=== PATIENT | female | born 1970 ===

== ENCOUNTER 2016-05-29 19:59 | Inpatient (IN) | payer OTHER ==
--- NOTE | 2016-05-29 20:07 | ED PDOC ---
Arrival/HPI - General Historian: Patient - History of Present Illness Time/Duration: < week Symptom Onset: Gradual Symptom Course: Unchanged, Intermittent Quality: Stabbing Severity Level: 6 <Kymberly Henderson - Last Filed: 05/30/16 02:01> <Mitul Goldberg - Last Filed: 05/30/16 02:04> - General Chief Complaint: Chest Pain Time Seen by Provider: 05/29/16 20:01 - History of Present Illness Narrative History of Present Illness (Text): 05/29/16 20:21 45 yo F w h/o asthma presents to the ER with one-day h/o L sided intermittent sharp chest pain reproducible on palpation. Patient states she just came back from the [facility] 3 days ago and has been having BL knee pain, intermittent fevers, chills, L frontal dull headache, nausea without emesis, and intermittent non-bloody, non-mucinous diarrhea. Also admits to green productive cough x 6 days, which started while in the . States she woke up today with sharp L chest pain she thought was due to her sleeping positive, however has not improved throughout the day, thus prompting her ER visit. Patient denies relieving factors, states positional change does not affect her CP, however pressure on the area induces the pain. Patient denies tick or mosquito bites, unusual/new food ingestion, SOB, abd pain, rashes, new skin lesions, pleuritic CP. Denies that any family members have been experience the same symptoms. Patient states she has traveled to the multiple times in the past and has never had anything like this before. (Kymberly Henderson) Past Medical History - Provider Review Nursing Documentation Reviewed: Yes - Travel History Have you recently traveled outside [place] w/in the past 3 mons?: Yes If Yes, travel location?: [facility], returned 3 days ago <Kymberly Henderson - Last Filed: 05/30/16 02:01> Family/Social History - Physician Review Nursing Documentation Reviewed: Yes Family/Social History: No Known Family HX <Kymberly Henderson - Last Filed: 05/30/16 02:01> Allergies/Home Meds <Kymberly Henderson - Last Filed: 05/30/16 02:01> <Mitul Goldberg - Last Filed: 05/30/16 02:04> Allergies/Adverse Reactions: Allergies shellfish derived Allergy (Verified 05/29/16 20:05) ITCHING Review of Systems - Physician Review All systems were reviewed & negative as marked: Yes - Review of Systems Constitutional: absent: Fatigue, Fevers (chills, denies subjective fevers) Eyes: Normal. absent: Vision Changes ENT: absent: Tinnitus, Epistaxis Respiratory: Cough, Sputum (green x6 days). absent: SOB Cardiovascular: Chest Pain (L sharp CP upon palpation ). absent: Palpitations, Calf Pain, MORRIS Gastrointestinal: Diarrhea (intermittent x 3 days), Nausea. absent: Abdominal Pain, Vomiting, Hematochezia, Hematemesis Genitourinary Female: absent: Dysuria, Frequency Musculoskeletal: Arthralgias (BL knees), Back Pain (lower). absent: Neck Pain, Joint Swelling Skin: absent: Rash, Skin Lesions Neurological: Headache (L frontal). absent: Dizziness, Focal Weakness, Disequilibrium Endocrine: absent: Diaphoresis, Polyuria, Polydipsia Hemo/Lymphatic: absent: Easy Bleeding, Easy Bruising Psychiatric: absent: Anxiety, Depression <Kymberly Henderson - Last Filed: 05/30/16 02:01> Physical Exam Vital Signs Reviewed: Yes Temperature: Afebrile Blood Pressure: Normal Pulse: Tachycardic (mild, 102) Respiratory Rate: Normal Appearance: Positive for: Well-Appearing, Comfortable Pain Distress: None Mental Status: Positive for: Alert and Oriented X 3 - Systems Exam Head: Present: Atraumatic, Normocephalic Pupils: Present: PERRL Extroacular Muscles: Present: EOMI Conjunctiva: Present: Normal. No: Injected, Icteric Ears: Present: Normal Mouth: Present: Dry (mildly) Neck: Present: Normal Range of Motion. No: Meningeal Signs, JVD, Lymphadenopathy Respiratory/Chest: Present: Good Air Exchange, Wheezes (mild end-exp), Tender to Palpation (L inframammary). No: Respiratory Distress, Accessory Muscle Use Cardiovascular: Present: Normal S1, S2, Tachycardic. No: Murmurs, Irregular Rhythm Abdomen: Present: Normal Bowel Sounds. No: Tenderness, Distention, Peritoneal Signs, Rebound, Guarding Back: Present: Normal Inspection. No: CVA Tenderness Upper Extremity: Present: Normal Inspection. No: Cyanosis, Edema Lower Extremity: Present: Normal Inspection, NORMAL PULSES, Capillary Refill < 2 s. No: Edema, CALF TENDERNESS Neurological: Present: GCS=15, CN II-XII Intact, Speech Normal Skin: Present: Warm, Dry, Rashes, Normal Color Lymphatic: No: Cervical Adenopathy Psychiatric: Present: Alert, Oriented x 3, Normal Insight, Normal Concentration <Kymberly Henderson - Last Filed: 05/30/16 02:01> Vital Signs Temp Pulse Pulse Resp BP Pulse Ox 05/29/16 20:47 80 05/29/16 20:05 99.0 F 102 H 16 127/78 98 05/29/16 20:03 99.0 F 102 H 18 127/78 98 Medical Decision Making Re-evaluation Time: 21:58 Reassessment Condition: Re-examined, Unchanged - Lab Interpretations I have reviewed the lab results: Yes - RAD Interpretation Nuclear Physicist: ED Physician - EKG Interpretation Interpreted by ED Physician: Yes Type: 12 lead EKG <Kymberly Henderson - Last Filed: 05/30/16 02:01> - Lab Interpretations I have reviewed the lab results: Yes <Mitul Goldberg - Last Filed: 05/30/16 02:04> ED Course and Treatment: 05/29/16 20:49 45 yo F with h/o asthma with recent travel to presents with one-day h/o sharp L CP, 6 days productive cough, 5 days intermittent diarrhea, headache, fevers, chills. Labs, EKG, CXR, blood cultures, UA w culture. ASA, Zofran, NS bolus, duonebs. 05/29/16 21:58 Upon re-evaluation, patient states she still has Chest pain when she touches the area. Now also admits to burning epigastric abdominal discomfort. Protonix. D-dimer elevated at 0.91, obtain CTA chest to r/o PE. 05/30/16 00:58 Patient back from CTA, states she has increased CP now, 10/10 sharp, stabbing on palpation. Will give one percocet, reassess, await CTA results. 05/31/16 01:45 CTA shows LLL PNA. April. Paged Dr. Tinajero, covering for Dr. Rahman, building insulation supervisor. 05/31/16 01:55 Dr. Goldberg spoke with Dr. Tinajero covering for Dr. Rahman, case discussed in detail, accepts admission for observation med/surg, will see patient in AM. (Kymberly Henderson) Impression: Pt seen and evaluated with medical claims representative. Pt, whose past medical history includes asthma, presented with intermittent left-sided chest pain. Pt with associated intermittent fever, productive cough, chills, headache, nausea, and diarrhea. Pt notes she recently returned from [facility] 3 days prior.Aware and agree with HPI, clinical findings, plan, and management. Plan: -- EKG -- CXR -- Labs, troponin, D-dimer, blood cultures -- UA, urine cultures -- Aspirin -- Duonebs -- Zofran -- IV fluids -- Reassess and disposition Prior Visits: Notes and results from previous visits were reviewed. Progress Notes: 05/30/16 01:45 CTA Chest shows: Pulmonary arteries: No filling defects are seen in the pulmonary arteries or in its visualized tributaries. Aorta: The aorta and the great vessels are normal. Negative for dissection. Lungs: There is focal consolidation in the left lower lobe, consistent with pneumonia. There is linear atelectasis or scar in the right lung base. The remaining lung parenchyma appears clear. Pleural space: Unremarkable. No significant effusion. No pneumothorax. Heart: Unremarkable. No cardiomegaly. No significant pericardial effusion. No evidence of RV dysfunction. Thyroid: The visualized thyroid and the thoracic inlet appear normal. Bones/joints: No acute fracture. No dislocation. Soft tissues: Unremarkable. Lymph nodes: Prominence left hilar node likely reactive measuring 1.6 cm. No additional enlarged lymph nodes. Liver: Hypervascular circumscribed structure in the right hepatic lobe 2.4 cm. Upper abdomen: The remainder of the visualized upper abdominal structures show no significant abnormalities. IMPRESSION: Left lower lobar pneumonia, with reactive left hilar adenopathy. No PE or dissection. Right base discoid atelectasis. Hypervascular hepatic lesion, differential diagnosis of hepatic adenoma, focal nodular hyperplasia, hemangioma, HCC, metastasis. Consider targeted sonographic correlation, or three -phase liver CT versus dynamic liver MRI as an outpatient. 05/30/16 01:[address] Tinajero, covering for Dr. Rahman, who is aware and agrees with plan. Pt will go to [facility] for pneumonia under Dr. Rahman's service. (Mitul Goldberg) - Lab Interpretations Lab Results: 05/29/16 20:30 05/29/16 20:30 Lab Results 05/29/16 20:30: WBC 8.4, RBC 3.86, Hgb 12.0, Hct 35.7 L, MCV 92.5, MCH 31.1, MCHC 33.6, RDW 13.0, Plt Count 253, MPV 10.8, Gran % 66.2, Lymph % (Auto) 24.2, Terry % (Auto) 8.8 H, Eos % (Auto) 0.6 L, Baso % (Auto) 0.2, Gran # 5.54, Lymph # 2.0, Terry # 0.7 H, Eos # 0.1, Baso # 0.02, D-Dimer, Quantitative 0.91 H, Sodium 139, Potassium 3.8, Chloride 101, Carbon Dioxide 28, Anion Gap 14, BUN 8 , Creatinine 0.6, Est GFR ( Amer) > 60, Est GFR (Non-Af Amer) > 60, Random Glucose 108, Calcium 8.7, Total Bilirubin 0.4, AST 24, ALT 21, Alkaline Phosphatase 70, Troponin I < 0.01, Total Protein 7.5, Albumin 3.8, Globulin 3.7 , Albumin/Globulin Ratio 1.0 L, Lipase 102, Urine Color Yellow, Urine Appearance Clear, Urine pH 6.0, Ur Specific [place] 1.020, Urine Protein Negative, Urine Glucose (UA) Negative, Urine Ketones Negative, Urine Blood Small H, Urine Nitrate Negative, Urine Bilirubin Negative, Urine Urobilinogen 1.0 H, Ur Leukocyte Esterase Negative, Urine RBC 1 - 3, Urine WBC 1 - 3, Ur Epithelial Cells 4 - 5, Urine Bacteria Few, Urine HCG, Qual Negative - RAD Interpretation Narrative RAD Interpretations (Text): 05/29/16 22:58 CXR - no active disease (Kymberly Henderson) Radiology Orders: 05/29/16 21:43 ANGIO CHEST PE PROTOCOL [CT] Stat 05/29/16 22:10 CXR [CHEST PORTABLE] [RAD] Stat - EKG Interpretation EKG Interpretation (Text): 05/29/16 20:55 Sinus tachycardia rate 102bpm, normal intervals, no acute ischemic changes. ( Kymberly Henderson) - Medication Orders Current Medication Orders: Levofloxacin/Dextrose (Levaquin 750mg) 150 mls @ 100 mls/hr IVPB STAT STA Stop: 05/30/16 03:16 Discontinued Medications Albuterol/Ipratropium (Duoneb 3 Mg/0.5 Mg (3 Ml) Ud) 3 ml IH STAT STA Stop: 05/29/16 20:47 Last Admin: 05/29/16 22:00 Dose: 3 ML Aspirin (Aspirin) 325 mg PO STAT STA Stop: 05/29/16 20:53 Last Admin: 05/29/16 22:00 Dose: 325 MG Sodium Chloride (Sodium Chloride 0.9%) 1,000 mls @ 999 mls/hr IV .Q1H1M STA Stop: 05/29/16 21:13 Last Admin: 05/29/16 20:44 Dose: 999 MLS/HR eMAR Start Stop Document 05/29/16 20:44 KK (Rec: 05/29/16 20:44 [id number] Intravenous Solution Start Date 05/29/16 Start Time 20:44 Iohexol (Omnipaque 350 100 Ml) Confirm Administered Dose 350 mg .ROUTE .STK-MED ONE Stop: 05/29/16 22:50 Ondansetron HCl (Zofran Inj) 4 mg IVP ONCE ONE Stop: 05/29/16 20:14 Last Admin: 05/29/16 20:44 Dose: 4 MG IVP Administration Document 05/29/16 20:44 KK (Rec: 05/29/16 20:44 [id number]) Charges for Administration # of IVP Administrations 1 Oxycodone/Acetaminophen (Percocet 5/325 Mg Tab) 1 tab PO STAT STA Stop: 05/30/16 00:58 Pantoprazole Sodium (Protonix Inj) 40 mg IVP STAT STA Stop: 05/29/16 21:43 Last Admin: 05/29/16 22:00 Dose: 40 MG IVP Administration Document 05/29/16 22:00 KK (Rec: 05/29/16 22:01 [id number]) Charges for Administration # of IVP Administrations 1 - PA / VISUAL ARTIST / Resident Statement / has reviewed & agrees with the documentation as recorded. / has examined the patient and agrees with the treatment plan. <Mitul Goldberg - Last Filed: 05/30/16 02:04> Disposition/Present on Arrival - Present on Arrival Any Indicators Present on Arrival: No History of DVT/PE: No History of Uncontrolled Diabetes: No Urinary Catheter: No History of Decub. Ulcer: No - Disposition Have Diagnosis and Disposition been Completed?: Yes Disposition Time: 01:55 Patient Plan: Admission, Observation <Kymberly Henderson - Last Filed: 05/30/16 02:01> <Mitul Goldberg - Last Filed: 05/30/16 02:04> - Disposition Diagnosis: Pneumonia Disposition: HOSPITALIZED Patient Problems: Current Active Problems Problem Status Diagnosed Pneumonia Acute Condition: FAIR Referrals: PCP,NO [Primary Care Provider] - Follow up with primary
[2016-05-29 20:11] VITALS: BMI 27.3
[2016-05-29] MEDS ORDERED: Sodium Chloride 0.9% 1,000 ML IV STA (20:13)
[2016-05-29 20:44] LABS: ADD MANUAL DIFF? NO
[2016-05-29] MEDS ORDERED: Albuterol-Ipratrop 3 mg / 0.5 (3 ml) UD IH STA (20:46)
[2016-05-29 20:54] LABS: URINE BILIRUBIN NEGATIVE (NEGATIVE); URINE BLOOD SMALL (NEGATIVE); URINE GLUCOSE (UA) NEGATIVE (NEGATIVE); URINE KETONE NEGATIVE (NEGATIVE); URINE LEUKOCYTE ESTERASE NEGATIVE Leu/uL (NEGATIVE); URINE PROTEIN NEGATIVE mg/dL (<30 mg/dL)
[2016-05-29 20:58] LABS: URINE APPEARANCE CLEAR (CLEAR); URINE COLOR YELLOW (YELLOW)
[2016-05-29 21:00] LABS: BASO # 0.02 K/mm3 (0.0-2.0); BASO % 0.2 % (0.0-3.0); EOS # 0.1 (0.0-0.7); EOS % 0.6 % (1.5-5.0); GRAN # 5.54 (1.4-6.5); GRAN % 66.2 % (50.0-68.0); HEMATOCRIT 35.7 % (36.0-48.0); LYMPH % 24.2 % (22.0-35.0); MEAN CELL VOLUME 92.5 fL (80.0-105.0); MEAN CORPUSCULAR HEMOGLOBIN 31.1 pg (25.0-35.0); MEAN CORPUSCULAR HGB CONC 33.6 g/dl (31.0-37.0); MEAN PLATELET VOLUME 10.8 fl (7.0-11.0); MONO # 0.7 (0.1-0.6); MONO % 8.8 % (1.0-6.0); PLATELET COUNT 253 10^3/uL (120.0-450.0); WHITE BLOOD COUNT 8.4 10^3/ul (4.5-11.0)
[2016-05-29 21:06] LABS: URINE BACTERIA FEW (NEG)
[2016-05-29 21:18] LABS: ALKALINE PHOSPHATASE 70 U/L (38-133); ALT/SGPT 21 U/L (7-56); AST/SGOT 24 U/L (15-39); BILIRUBIN,TOTAL 0.4 mg/dL (0.2-1.3); BLOOD UREA NITROGEN 8 mg/dL (7-21); CALCIUM 8.7 mg/dL (8.4-10.5); CARBON DIOXIDE 28 mmol/L (21-33); CHLORIDE 101 mmol/L (98-107); GFR AFRICAN-AMERICAN > 60; GLUCOSE,RANDOM 108 mg/dL (70-110); POTASSIUM 3.8 mmol/L (3.6-5.0); SODIUM 139 mmol/L (132-148); TOTAL PROTEIN 7.5 g/dL (5.8-8.3); TROPONIN I < 0.01 ng/mL
[2016-05-29] MEDS ORDERED: Iohexol 350 MG/100 ML VIAL ONE (22:49)
[2016-05-30] MEDS ORDERED: Oxycodone/Acetaminophen 5/325 mg Tab PO STA (00:57)
[2016-05-30] MEDS ORDERED: Sodium Chloride 0.9% 1,000 ML IV STA (02:06)
[2016-05-30] MEDS ORDERED: Albuterol-Ipratrop 3 mg / 0.5 (3 ml) UD IH PRN (02:06)
[2016-05-30] MEDS ORDERED: Albuterol-Ipratrop 3 mg / 0.5 (3 ml) UD IH SCH (08:00)
--- NOTE | 2016-05-30 08:09 | CT ---
PROCEDURE: CT Chest with contrast (Pulmonary Angiogram) HISTORY: CP, elevated D dimer COMPARISON: None available. TECHNIQUE: Axial computed tomography images were obtained of the chest in the pulmonary arterial phase of enhancement. Coronal and sagittal reformatted images were created and reviewed. Intravenous contrast dose: Visipaque 320 100 mL Radiation dose: Total exam DLP = 441 mGy-cm. This CT exam was performed using one or more of the following dose reduction techniques: Automated exposure control, adjustment of the mA and/or kV according to patient size, and/or use of iterative reconstruction technique. FINDINGS: PULMONARY ARTERIES: Small left pulmonary thrombi the lingular and left lower lobe pulmonary venous branches are suspect-of unknown chronicity .Very tiny far peripheral pulmonary arterial emboli cannot be entirely excluded ; no central pulmonary arterial emboli suggested. In the left inferolateral lung, there is extensive masslike pleural-parenchymal consolidation which extends to the left hilum -some encasement of the most peripheral left inferior subsegmental pulmonary arterial and venous branches is suggested AORTA: No acute findings. No thoracic aortic aneurysm. LUNGS: Large masslike left inferolateral lung pleural parenchymal consolidation extending to the left hilum. Infiltrate and/or underlying malignancy need to be considered. Right posterior lower lobe calcified pleural bandlike scarring PLEURAL SPACES: No effusion or pneuomothorax. HEART: Unremarkable. No cardiomegaly. No significant pericardial effusion. LYMPH NODES: Possible left hilar small lymph nodes blending with the left coalescent masslike pleural-parenchymal consolidation. BONES, CHEST WALL: Unremarkable. No fracture or destructive lesion OTHER FINDINGS: 2 cm slightly hyperdense possibly enhancing liver mass. Coronal series 603, image 87 . Consider MRI of the liver with contrast for further characterisation . IMPRESSION: No central pulmonary emboli. Left lower lobe subsegmental pulmonary venous thrombi. Tiny far peripheral subsegmental pulmonary arterial emboli cannot be entirely excluded. Some encroachment on the far peripheral subsegmental left pulmonary arterial and venous branches to the left inferolateral lung parenchyma by the masslike consolidation is possible. Infiltrate and/or underlying malignancy needed be considered. Follow-up needed Indeterminate 2 cm liver mass -consider MRI of the liver with contrast for further characterisation
--- NOTE | 2016-05-30 08:52 | RAD ---
HISTORY: CP COMPARISON: No prior. FINDINGS: LUNGS: Masslike opacification left inferolateral hemithorax PLEURA: No significant pleural effusion identified, no pneumothorax apparent. CARDIOVASCULAR: Normal. OSSEOUS STRUCTURES: No significant abnormalities. VISUALIZED UPPER ABDOMEN: Normal. OTHER FINDINGS: None. IMPRESSION: Inferolateral masslike opacity trace and or neoplasm needed be considered
[2016-05-30] MEDS: Aztreonam 1 Gm in NS 100mL 100 ML IVPB SCH ×3 (09:01→21:52)
[2016-05-30] MEDS: Linezolid 600 mg in D5W 300 ml 300 ML IVPB SCH ×2 (09:03→21:52)
--- NOTE | 2016-05-30 09:22 | HP ---
I saw the patient resting comfortably in her bed. She comes in with a history of left-sided intermit tent sharp pain, reproducible on palpation, also coughing. She came back from the [place] . She is having bilateral knee pain, intermittent fevers, headache. She was throwing up. She is brice ving chills, some diarrhea. She also has a nonproductive cough for 6 days. It was green productive cough with mucus, not feeling well and comes into the hospital in distress with a fever. No other me dical history. FAMILY HISTORY: No known family history to speak of. ALLERGIES: SHELLFISH and PENICILLINS PAST MEDICAL HISTORY: None. PAST SURGICAL HISTORY: None. She has fevers, chills. No vision changes, no hearing changes, no sore throat, no bloody nose, no ri nging in the ears. She is coughing up green sputum for 6 days, occasional shortness of breath and le ft-sided chest pain at times. No palpitations. No calf pain. Some diarrhea x 3 days with nauseousn ess. No problems urinating. She does have arthralgias and pains in her back and her knees. No skin rashes or skin issues to speak of. She has a headache, not dizzy. She is not sweating, not easily bleeding. No anxiety or depression. PHYSICAL EXAMINATION: VITAL SIGNS: She has a 99 temp, 102 pulse, 18 respiratory rate, 127/78 blood pressure, 98% O2 sat on room air. GENERAL: Well-appearing, comfortable, alert and oriented x 3, no acute distress at this time. HEENT: Head is atraumatic, normocephalic. Extraocular muscles are intact. Pupils equally reactive to light and accommodation. Ears are intact. Throat is dry. NECK: Supple. HEART: Regular rate. Normal S1, S2, a little fast. LUNGS: Decreased breath sounds, occasional wheeze, end-expiratory. ABDOMEN: Soft, nontender, positive bowel sounds, no guarding, no rebound, no CVA tenderness. EXTREMITIES: Have no edema. NEUROLOGIC: GCS is 15. Cranial nerves II-XII grossly intact. Speech is normal. Alert and oriented x 3. SKIN: Warm and dry. LYMPHATIC: No cervical adenopathy appreciated. Thyroid midline. She is having 6 days of coughing up green phlegm, fevers, diarrhea, chest pains. She is coming from the [facility]. She has an 8.4 white count, 12 hemoglobin, 35.7 hematocrit with 253 platelets. D-dimer is 0.91. The CAT scan is pending. Sodium 139, potassium 3.8, BUN 8, creatinine 0.6, GFR is greater than 60, suga r is 108, calcium is 8.7, total bili is 0.4, AST is 24, ALT is 21, alk phos is 70. Troponin I is les s than 0.01. Total protein 7.5, lipase is 102. Urine is clean and not . CAT scan and chest x-rays are pending. She is in observation at this time. She will have a consult with pulmonary. I will call in infectio us disease and GI. We will give Zofran and we will check stools for Clostridium difficile. She is o n Levaquin right now. She is ALLERGIC TO PENICILLINS AND SHELLFISH. If she does well on the CAT sca n and chest x-ray are negative, we will try and discharge her in the next 24 hours. Otherwise, we wi ll change her to an inpatient. She is here for shortness of breath, coughing, chest pain, diarrhea, rule out pneumonia. Arvin Rahman DO cc: [id number] TT: 05/30/2016 09:13:13 en 05/30/2016 08:21:17
--- NOTE | 2016-05-30 10:09 | CON ---
DATE: 05/30/2016 She is in 3R. The patient is a [place] 45-year-old female who lives in [facility]. She recently returned from [facility] on vacation, with knee pain, but there is no pain in the calves or extremities. She has a chest pain which is definitely musculoskeletal in origin. Palpation of the ribs are tender and cause the exact pain that she describes. This is not a pleuritic pain, as it seems to have been evaluated in the Emergency Room. No additional history is pertinent at this time except the following. The patient has had bronchial asthma for 27 years. She uses albuterol and Qvar. The Qvar is used regularly. The albuterol is only used as necessary. She states that she has not been hospitalized for asthma. She did not have acute wheezing when coming to the Emergency Room. Her major reasons for coming were this discomfort in her chest which was worsened by pressing her chest wall. In the Emergency Room the doctors did a D-dimer which was elevated, and prompted a helical CT of the chest. There is no significant past medical history other than that described above. SOCIAL HISTORY: She is a nonsmoker. She never smoked. She has a travel history to [facility]. Otherwise, no travel history. No occupational exposure. No illicit drugs. FAMILY HISTORY: Mother has asthma. No other medical problems are noted. ALLERGIES: SHELLFISH AND IODINE, CAUSING ITCHING. REVIEW OF SYSTEMS: Only positive findings are recent fever and chills. There was a recent cough with expectoration of green phlegm for 6 days. There was no associated wheezing. The chest pain is not cardiovascular or pleuritic. It is musculoskeletal. She has had diarrhea as well. All other systems negative On physical exam, she is in no acute distress. Her temp is 98.6, pulse 88, respiratory rate 16, blood pressure 130/80, O2 sat 98% on room air. HEENT: Normocephalic, atraumatic. NECK: Supple, no JVD, no lymph nodes, no bruit. EYES: PERRLA. EOMs full. Conjunctivae pink. RESPIRATORY: Chest: There is definitely good air movement. Wheezing is no longer present, and the left chest is tender to palpation. This represents the same pain that the patient described on admission to the Emergency Room. CARDIOVASCULAR: Regular rhythm, S1, S2, without murmur, gallop, or rub. ABDOMEN: Soft. Bowel sounds normoactive without mass, guarding, rebound, or organomegaly. There is no Homans sign. EXTREMITIES: Reveal no clubbing, cyanosis, or edema. There is no Homans sign. NEUROLOGIC EXAMINATION: Awake and alert, oriented. Mental status normal. Motor, sensory, and coordination are normal. Cranial nerves are intact. Deep tendon reflexes normal. Babinski downgoing. SKIN: Warm. No rash or excoriation. Lymphadenopathy is not present. There are no lymph nodes palpated in the supraclavicular notch or in the inguinal, axillary, or cervical areas. LABORATORY STUDIES: Show the following: White count 8000, hemoglobin 12, hematocrit 35, eos 0.6. Coags: D-dimer is 0.91. Chemistry: SMA-23 is all within normal limits. X-ray and CAT scan show large mass-like pleural parenchymal infiltrate that extends from the pleura to the hilum, rather large for a pneumonia. CT angio does not show central lesions that would cause this infiltrate. Does show some minor abnormalities that are very unclear. It is doubtful that these represent a pulmonary emboli, but they must be excluded in the face of having a recent plane excursion, knee pain, and an elevated D-dimer. EKG: Sinus rhythm, nonspecific ST-T wave changes. IMPRESSION: 1. Asthma. 2. Large pulmonary infiltrate consistent with pneumonia. 3. Chest pain. This is likely musculoskeletal from cough, or viral. 4. Possibility of PE unclear. 5. Possibility of pulmonary neoplasm (unlikely). PLAN: 1. Would continue antibiotic therapy and make sure that this infiltrate resolves. 2. Would give analgesics for the musculoskeletal chest pain. 3. Treat vigorously the underlying bronchial asthma. 4. In the interim, would use low-dose anticoagulation with Lovenox because of the several factors described above that point to the possibility of small pulmonary emboli. 5. A followup scan will be necessary to see if these abnormalities resolved. Please note that this should be done in several weeks. The patient did have a CT angio with contrast. ALTHOUGH SHE IS ALLERGIC TO SHELLFISH AND IODINE, SHE APPARENTLY HAD NO REACTION ACUTELY, BUT SHE SHOULD HAVE HER RENAL FUNCTION MONITORED CLOSELY WHILE HERE IN THE HOSPITAL. Will follow closely with you, and suggest starting Lovenox at this time, in addition to the other medications that are provided. Wily Tom MD cc: [id number] TT: 05/30/2016 10:09:40 Confirmation # [id number] Dictation # [id number] MTDD
--- NOTE | 2016-05-30 14:42 | US ---
HISTORY: Leg pain and swelling. Evaluate for DVT PHYSICIAN(S): Jesus Castellon MD. TECHNIQUE: Duplex sonography and color-flow Doppler with graded compression were used to evaluate the deep venous systems of both lower extremities. FINDINGS: The visualized deep venous systems of both lower extremities are sonographically normal and compressible. Normal wave forms and augmentation are seen. There is no sonographic evidence for deep venous thrombosis in the visualized segments of both lower extremities. IMPRESSION: No sonographic evidence for deep venous thrombosis in the visualized segments of both lower extremities.
[2016-05-30] MEDS: Enoxaparin 40 mg Syringe SC SCH (16:07)
--- NOTE | 2016-05-30 18:05 | CARD ---
APPROVED REPORT EKG Measurement Heart [id number] 134P30 [id number] <Conclusion> Sinus tachycardia Otherwise normal ECG
[2016-05-30] MEDS: Arformoterol 15 mcg/2 ml Inh Sol IH SCH (19:22)
[2016-05-30] MEDS: Budesonide 0.5 mg/2 ml Inhal Susp UD IH SCH (19:22)
[2016-05-30] MEDS ORDERED: Arformoterol 15 mcg/2 ml Inh Sol IH SCH (20:00)
[2016-05-31] MEDS: Aztreonam 1 Gm in NS 100mL 100 ML IVPB SCH ×3 (05:52→21:16)
[2016-05-31] MEDS: Budesonide 0.5 mg/2 ml Inhal Susp UD IH SCH ×2 (07:49→19:34)
[2016-05-31] MEDS: Arformoterol 15 mcg/2 ml Inh Sol IH SCH ×2 (07:49→19:34)
--- NOTE | 2016-05-31 08:22 | PN ---
DATE: 05/31/2016 I saw her resting comfortably this morning in bed. She slept fairly well. She is definitely improvi ng. She is on Azactam, Brovana, Lovenox, Pulmicort, Tylenol, Zyvox IV. She has little bit of shortness of breath, much better, less cough, more strength, overall improving. PHYSICAL EXAMINATION: VITAL SIGNS: She has a 98.3 temp, 98 pulse, 107/71 blood pressure, 19 respiratory rate, 98% O2 sat o n room air. HEENT: Head is atraumatic, normocephalic. Throat is moist. NECK: Supple. HEART: Regular rate. LUNGS: Decreased breath sounds bilaterally, but clear to auscultation. I do not hear any rales or w heezing. ABDOMEN: Soft. EXTREMITIES: No edema. She has a white count of 8.4, hemoglobin 12. Labs are pending this morning. The D-dimers were eleva aurora. She has a lipase of 102. She is being seen by pulmonology. She had an ultrasound of her extremities, which were normal. She has asthma large pulmonary infiltrate consistent with pneumonia, possibility of a pulmonary embolism, but unlikely and possibility of pulmonary neoplasm, which is unlikely as per pulmonary. We will con tinue with antibiotics. She is currently on aztreonam, Brovana, levofloxacin, Lovenox, no more levofloxacin, Pulmicort, Tylen ol and Zyvox. Continue with aggressive treatment and care. We will discuss it with Dr. Tom about the lung x -ray and CAT scan. Arvin Rahman DO cc: [id number] TT: 05/31/2016 08:21:50 Confirmation # [id number] Dictation # [id number] en
--- NOTE | 2016-05-31 09:18 | RAD ---
HISTORY: pneumonia COMPARISON: 05/29/2016 TECHNIQUE: Chest PA and lateral FINDINGS: LUNGS: No active pulmonary disease. PLEURA: No significant pleural effusion identified. No pneumothorax apparent. CARDIOVASCULAR: Normal. OSSEOUS STRUCTURES: No significant abnormalities. VISUALIZED UPPER ABDOMEN: Normal. OTHER FINDINGS: None. IMPRESSION: No active disease.
--- NOTE | 2016-05-31 09:51 | PN ---
DATE: 05/31/2016 PULMONARY PROGRESS NOTE The patient is doing much better today. She feels stronger. She is actually not wheezing any longer. She does admit much asthma medications, as originally , and this will be tapered. Etiology unclear. PHYSICAL EXAMINATION: VITAL SIGNS: Stable with a blood pressure of 120/70, heart rate 70, respiratory rate 16, O2 sat 98% on room air. HEENT: Normal. NECK: Supple. No JVD, no lymphadenopathy, no bruit. EYES: PERRLA. EOMs full. RESPIRATORY: Her pulmonary status, she sounds better. There are no longer any wheezes. The rhonchi persists at the base as before. EXTREMITIES: Reveal there is no Homans' sign. NEUROLOGIC: Normal. SKIN: Without rash or excoriation. LYMPHS: Lymphadenopathy not present. LABORATORY STUDIES: As described above. Chest x-ray unchanged. D-dimer remains elevated. White count has been stable. IMPRESSION: 1. Asthma, resolved. 2. Large pulmonary infiltrate with no white count, findings consistent with pneumonia, but must exclude underlying neoplasm additional etiology, doubt pulmonary necrosis. 3. Chest pain, resolved. 4. Possibility of pulmonary embolism still remains unclear. PLAN: 1. Continue antibiotic therapy. 2. Probably no longer requires analgesics for musculoskeletal chest pain. 3. Continue bronchodilators for this patient. 4. Would continue anticoagulation in the interim. 5. We will discuss followup with the patient's PMD panel flow machine operator in [facility], SUGGESTIONS: My suggestions at this time would be to continue anticoagulation for the next 2-[address] angio to see if anything appears to be normal. It is not clear at all whether or not this patient has or has not had a pulmonary embolism. There are definitely factors going against this diagnosis , and there are factors going for this diagnosis. It remains unclear. Perhaps thoracic surgery should be consulted as well, but we will defer to follow up this patient in [facility]. I will be happy to transfer any information required to her panel flow machine operator. Thank you for the opportunity to see this [place] patient. Wily Tom MD cc: [phone] TT: 05/31/2016 09:31:01 Confirmation # [id number] Dictation # [id number] margaret 05/31/2016 08:50:49 MTDD
[2016-05-31 09:58] VITALS: RESP 20
[2016-05-31] MEDS: Linezolid 600 mg in D5W 300 ml 300 ML IVPB SCH ×2 (10:15→22:21)
[2016-05-31] MEDS: Enoxaparin 40 mg Syringe SC SCH (10:15)
[2016-05-31] MEDS ORDERED: Fluticasone-Salmeterol 250-50mcg Diskus IH SCH (10:15)
--- NOTE | 2016-05-31 13:52 | CP.PCM.CON ---
History of Present Illness - History of Present Illness History of Present Illness: CC: Liver lesion HPI: 45 year old female with h/o asthma who originally presented with sob. She was diagnosed with Asthma exacerbation and pneumonia. She underwent a PE protocol CT and although no definite PE was diagnosed she was started on anticoagulation. She is doing better now. Incidentally, she was noted to have a 2 cm lesion in the liver on CT chest. She has no prior imaging of the liver. She has no known history of liver disease. She drinks alcohol socially and doesn 't smoke. She has no family history of liver disease or cancer. She has prior history of OCPs more than 15 years ago. She has 3 children. She denies abdominal pain, nausea, vomiting, blood in the stool, dysphagia, weight loss, jaundice, pruritis. Otherwise feels ok. PMhx Asthma PSHx C sxn FHx no family history of liver disease SHx social etoh, non smoker,no drugs ROS A comprehensive review of systems was performed and was negative apart from HPI Past Patient History - Past Social History Smoking Status: Never Smoked Alcohol: None Drugs: Denies Home Situation {Lives}: With Family - CARDIAC Hx Cardiac Disorders: No - PULMONARY Hx Respiratory Disorders: Yes Hx Asthma: Yes - NEUROLOGICAL Hx Neurological Disorder: No - HEENT Hx HEENT Problems: No - RENAL Hx Chronic Kidney Disease: No - ENDOCRINE/METABOLIC Hx Endocrine Disorders: No - HEMATOLOGICAL/ONCOLOGICAL Hx Blood Disorders: No - INTEGUMENTARY Hx Dermatological Problems: No - MUSCULOSKELETAL/RHEUMATOLOGICAL Hx Falls: No - GASTROINTESTINAL Hx Gastrointestinal Disorders: No - GENITOURINARY/GYNECOLOGICAL Hx Genitourinary Disorders: No - PSYCHIATRIC Hx Substance Use: No - SURGICAL HISTORY Hx Surgeries: Yes (c-sectionx3, tubal ligation) - ANESTHESIA Hx Anesthesia: No Meds Allergies/Adverse Reactions: Allergies Allergy/AdvReac Type Severity Reaction Status Date / Time Penicillins Allergy RASH Verified 05/30/16 04:51 shellfish derived Allergy ITCHING Verified 05/29/16 20:05 - Medications Medications: Current Medications Acetaminophen (Tylenol 325mg Tab) 650 mg PO Q4H PRN PRN Reason: Headache Last Admin: 05/30/16 16:12 Dose: 650 mg Arformoterol Tartrate (Brovana) 15 mcg IH [id number] MAXIMO Budesonide (Pulmicort Respules) 0.5 mg IH [id number] MAXIMO Enoxaparin Sodium (Lovenox) 40 mg SC DAILY MAXIMO PRN Reason: Protocol Last Admin: 05/31/16 10:15 Dose: 40 mg Linezolid (Zyvox 600mg/300ml D5w) 300 mls @ 200 mls/hr IVPB Q12 MAXIMO PRN Reason: Protocol Stop: 06/06/16 10:01 Last Admin: 05/31/16 10:15 Dose: 200 mls/hr Aztreonam (Azactam 1 Gm) 100 mls @ 100 mls/hr IVPB Q8 MAXIMO PRN Reason: Protocol Stop: 06/06/16 08:31 Last Admin: 05/31/16 05:52 Dose: 100 mls/hr Physical Exam - Constitutional Appears: Well, No Acute Distress - Head Exam Head Exam: ATRAUMATIC, NORMOCEPHALIC - Eye Exam Eye Exam: Normal appearance. absent: Scleral icterus Pupil Exam: PERRL - ENT Exam ENT Exam: Mucous Membranes Moist, Normal Oropharynx - Neck Exam Neck exam: Negative for: Lymphadenopathy, Thyromegaly - Respiratory Exam Respiratory Exam: Clear to Auscultation Bilateral, NORMAL BREATHING PATTERN. absent: Wheezes, Respiratory Distress, Stridor - Cardiovascular Exam Cardiovascular Exam: REGULAR RHYTHM, +S1, +S2 - GI/Abdominal Exam GI & Abdominal Exam: Soft. absent: Distended, Firm, Guarding, Tenderness - Extremities Exam Extremities exam: Negative for: pedal edema - Neurological Exam Neurological exam: Alert, Oriented x3 - Psychiatric Exam Psychiatric exam: Normal Affect, Normal Mood - Skin Skin Exam: Dry, Normal Color, Warm Results - Vital Signs Recent Vital Signs: Last Vital Signs Temp 98.1 F 05/31/16 06:00 Pulse 80 05/31/16 06:00 Resp 20 05/31/16 06:00 BP 96/68 L 05/31/16 06:00 Pulse Ox 99 05/31/16 06:00 - Labs Result Diagrams: 05/29/16 20:30 05/29/16 20:30 Labs: Laboratory Results - last 24 hr 05/31/16 07:00 Procalcitonin < 0.05 L Assessment & Plan - Assessment and Plan (Free Text) Assessment: 45 year old female who presents with asthma, pneumonia, and is incidentally found to have a 2 cm liver lesion. 1. Liver lesion Plan: -recommend further evaluation with triple phase CT of the liver -no pre-existing liver disease, but will evaluate for any predisposing liver disease -recommend checking viral hepatitis serologies -recommend autoimmune serologies -check afp -check iron studies -further recs pending CT -will follow - Date & Time Date: 05/31/16 Time: 13:52
--- NOTE | 2016-05-31 18:58 | CP.PCM.CON ---
History of Present Illness - History of Present Illness History of Present Illness: 45 year old female with PMH of asthma, S/P caesarian section and tubal ligation was admitted because of sharp left sided chest pain on the anterior and posterior side. She just came from [facility] but even before coming back, she had been having fevers since 5 days ago, associated with the chest pain. She also has some shortness of breath and cough with greenish phlegm. She denies hemoptysis, no sore throat, no headache or dizziness, no abdominal pain, no nausea or vomiting, no dysuria, no diarrhea, no denies weight loss, no night sweats, no dysphagia. In the ED, chest CT shows infiltrate in the left lower lobe. Infectious Diseases consult is requested to further evaluate and manage. She states that while in the [place], she went [place]. She denies mosquito bites. Review of Systems - Review of Systems All systems: reviewed and no additional remarkable complaints except (as per HPI ) Past Patient History - Past Social History Smoking Status: Never Smoked Alcohol: None Drugs: Denies Home Situation {Lives}: With Family - CARDIAC Hx Cardiac Disorders: No - PULMONARY Hx Respiratory Disorders: Yes Hx Asthma: Yes - NEUROLOGICAL Hx Neurological Disorder: No - HEENT Hx HEENT Problems: No - RENAL Hx Chronic Kidney Disease: No - ENDOCRINE/METABOLIC Hx Endocrine Disorders: No - HEMATOLOGICAL/ONCOLOGICAL Hx Blood Disorders: No - INTEGUMENTARY Hx Dermatological Problems: No - MUSCULOSKELETAL/RHEUMATOLOGICAL Hx Falls: No - GASTROINTESTINAL Hx Gastrointestinal Disorders: No - GENITOURINARY/GYNECOLOGICAL Hx Genitourinary Disorders: No - PSYCHIATRIC Hx Substance Use: No - SURGICAL HISTORY Hx Surgeries: Yes (c-sectionx3, tubal ligation) - ANESTHESIA Hx Anesthesia: No Meds Allergies/Adverse Reactions: Allergies Allergy/AdvReac Type Severity Reaction Status Date / Time Penicillins Allergy RASH Verified 05/30/16 04:51 shellfish derived Allergy ITCHING Verified 05/29/16 20:05 - Medications Medications: Current Medications Albuterol/Ipratropium (Duoneb 3 Mg/0.5 Mg (3 Ml) Ud) 3 ml IH [id number] MAXIMO Sodium Chloride (Sodium Chloride 0.9%) 1,000 mls @ 100 mls/hr IV .Q10H STA Stop: 05/30/16 12:05 Last Admin: 05/30/16 02:30 Dose: 100 mls/hr Levofloxacin/Dextrose (Levaquin 750mg) 150 mls @ 100 mls/hr IVPB DAILY MAXIMO Ondansetron HCl (Zofran Inj) 4 mg IVP Q6H PRN PRN Reason: Nausea/Vomiting Physical Exam - Constitutional Appears: Non-toxic, No Acute Distress - Head Exam Head Exam: NORMAL INSPECTION - ENT Exam ENT Exam: Mucous Membranes Moist - Neck Exam Neck exam: Negative for: Lymphadenopathy, Meningismus - Respiratory Exam Respiratory Exam: Decreased Breath Sounds - Cardiovascular Exam Cardiovascular Exam: +S1, +S2 - GI/Abdominal Exam GI & Abdominal Exam: Soft. absent: Tenderness Results - Vital Signs Recent Vital Signs: Last Vital Signs Temp 98.0 F 05/30/16 04:00 Pulse 78 05/30/16 04:00 Resp 20 05/30/16 04:38 BP 122/78 05/30/16 04:00 Pulse Ox 95 05/30/16 00:00 - Labs Result Diagrams: 05/29/16 20:30 05/29/16 20:30 Assessment & Plan - Assessment and Plan (Free Text) Plan: Assessment Probable community-acquired pneumonia, left lower lobe asthma S/P caesarian section and tubal ligation Plan Started patient on Zyvox and Aztreonam pending blood, sputum cx; follow up recommendations of Pulmonary
--- NOTE | 2016-05-31 19:08 | CP.PCM.PN ---
Subjective - Date & Time of Evaluation Date of Evaluation: 05/31/16 Time of Evaluation: 10:05 - Subjective Subjective: Comfortable in bed, not in distress, less pain in the chest. No fevers overnight. Objective - Vital Signs/Intake and Output Vital Signs (last 24 hours): Temp Pulse Resp BP Pulse Ox 98.1 F 80 20 96/68 L 99 05/31/16 06:00 05/31/16 06:00 05/31/16 06:00 05/31/16 06:00 05/31/16 06:00 Intake and Output: 05/31/16 05/31/16 06:59 18:59 Intake Total 1820 Balance 1820 - Medications Medications: Current Medications Acetaminophen (Tylenol 325mg Tab) 650 mg PO Q4H PRN PRN Reason: Headache Last Admin: 05/30/16 16:12 Dose: 650 mg Arformoterol Tartrate (Brovana) 15 mcg IH [id number] MAXIMO Budesonide (Pulmicort Respules) 0.5 mg IH [id number] MAXIMO Enoxaparin Sodium (Lovenox) 40 mg SC DAILY MAXIMO PRN Reason: Protocol Last Admin: 05/31/16 10:15 Dose: 40 mg Linezolid (Zyvox 600mg/300ml D5w) 300 mls @ 200 mls/hr IVPB Q12 MAXIMO PRN Reason: Protocol Stop: 06/06/16 10:01 Last Admin: 05/31/16 10:15 Dose: 200 mls/hr Aztreonam (Azactam 1 Gm) 100 mls @ 100 mls/hr IVPB Q8 MAXIMO PRN Reason: Protocol Stop: 06/06/16 08:31 Last Admin: 05/31/16 14:03 Dose: 100 mls/hr - Constitutional Appears: Non-toxic, No Acute Distress - Head Exam Head Exam: NORMAL INSPECTION - ENT Exam ENT Exam: Mucous Membranes Moist - Neck Exam Neck Exam: absent: Lymphadenopathy, Meningismus - Respiratory Exam Respiratory Exam: Decreased Breath Sounds - Cardiovascular Exam Cardiovascular Exam: +S1, +S2 - GI/Abdominal Exam GI & Abdominal Exam: Soft. absent: Tenderness Assessment and Plan - Assessment and Plan (Free Text) Plan: Assessment Probable community-acquired pneumonia, left lower lobe, slowly improving asthma S/P caesarian section and tubal ligation Plan continue Zyvox and Aztreonam day 2 pending blood, sputum cx; reviewed recommendations of Pulmonary - patient should have outpatient follow up with Cloth Napping Supervisor to make sure that the infiltrate resolves, or get further work up if it persists; as long as she is getting better, may consider switch to PO antibiotics in the next 24-48 hours to complete a 5-7 day course
[2016-06-01] MEDS: Aztreonam 1 Gm in NS 100mL 100 ML IVPB SCH (05:27)
--- NOTE | 2016-06-01 07:33 | CP.PCM.PN ---
<Florence Vega - Last Filed: 06/01/16 10:45> Subjective - Date & Time of Evaluation Date of Evaluation: 06/01/16 Time of Evaluation: 07:30 - Subjective Subjective: Gastroenterology Fellow/PGY4 Progress Note Patient feels well this morning. Shortness of breath resolved. Tolerating regular diet. Notes formed bowel movement this morning. A 12-point review of systems negative except for as above. Objective - Vital Signs/Intake and Output Vital Signs (last 24 hours): Temp Pulse Resp BP Pulse Ox 98.4 F 84 20 121/79 99 05/31/16 16:00 05/31/16 16:00 05/31/16 16:00 05/31/16 16:00 05/31/16 16:00 - Medications Medications: Current Medications Acetaminophen (Tylenol 325mg Tab) 650 mg PO Q4H PRN PRN Reason: Headache Last Admin: 05/30/16 16:12 Dose: 650 mg Arformoterol Tartrate (Brovana) 15 mcg IH [id number] [facility] Last Admin: 05/31/16 19:34 Dose: 15 mcg Budesonide (Pulmicort Respules) 0.5 mg IH [id number] MAXIMO Last Admin: 05/31/16 19:34 Dose: 0.5 mg Enoxaparin Sodium (Lovenox) 40 mg SC DAILY MAXIMO PRN Reason: Protocol Last Admin: 05/31/16 10:15 Dose: 40 mg Linezolid (Zyvox 600mg/300ml D5w) 300 mls @ 200 mls/hr IVPB Q12 MAXIMO PRN Reason: Protocol Stop: 06/06/16 10:01 Last Admin: 05/31/16 22:21 Dose: 200 mls/hr Aztreonam (Azactam 1 Gm) 100 mls @ 100 mls/hr IVPB Q8 MAXIMO PRN Reason: Protocol Stop: 06/06/16 08:31 Last Admin: 06/01/16 05:27 Dose: 100 mls/hr - Constitutional Appears: Non-toxic, No Acute Distress - Head Exam Head Exam: ATRAUMATIC, NORMOCEPHALIC - Eye Exam Eye Exam: EOMI, PERRL Pupil Exam: PERRL. absent: Miosis, Mydriatic - ENT Exam ENT Exam: Mucous Membranes Moist, Normal Oropharynx - Neck Exam Neck Exam: Full ROM, Normal Inspection - Respiratory Exam Respiratory Exam: Clear to Ausculation Bilateral. absent: Rales, Rhonchi, Wheezes - Cardiovascular Exam Cardiovascular Exam: RRR, +S1, +S2. absent: Gallop, Rubs - GI/Abdominal Exam GI & Abdominal Exam: Soft, Normal Bowel Sounds. absent: Distended, Firm, Guarding, Rigid, Tenderness, Organomegaly, Rebound - Extremities Exam Extremities Exam: Full ROM. absent: Pedal Edema - Neurological Exam Neurological Exam: Alert, Awake - Psychiatric Exam Psychiatric exam: Normal Affect, Normal Mood - Skin Skin Exam: Dry, Intact, Normal Color, Warm Assessment and Plan - Assessment and Plan (Free Text) Assessment: 45 year old female with history of asthma presenting with shortness of breath. Active treatment of left lower lobe community acquired pneumonia with concern for possible underlying pulmonary embolism versus neoplasm and incidental finding of a 2cm hyperdense right hepatic lobe lesion. History of OCPs use for total of 15 years with last use being 15 years ago. Colonoscopy 10 years ago endorsed to be normal with family history of colon cancer in mother and lymphoma in father. Plan: >CT liver triple phase- arterial enhancement of a 2.6cm hepatic lesion with portal venous phase washout >ordered Abdominal Duplex to evaluate for portal system thrombosis >LFTs normal, ordered INR >pending Hepatitis panel, AFP, autoimmune workup >tolerating regular diet >ID managing- on Aztreonam and Linezolid for pneumonia >follow up with GI, Dr. Lim to discuss results and further workup -, 06/07/16 at 11AM in [place]- [address] [place] [address] [address] <Stan Aldridge Y - Last Filed: 06/01/16 12:57> Objective - Vital Signs/Intake and Output Vital Signs (last 24 hours): Temp Pulse Resp BP Pulse Ox 97.6 F 77 20 106/64 98 06/01/16 04:00 06/01/16 04:00 06/01/16 04:00 06/01/16 04:00 06/01/16 04:00 - Medications Medications: Current Medications Acetaminophen (Tylenol 325mg Tab) 650 mg PO Q4H PRN PRN Reason: Headache Last Admin: 05/30/16 16:12 Dose: 650 mg Arformoterol Tartrate (Brovana) 15 mcg IH [id number] MAXIMO Last Admin: 06/01/16 08:13 Dose: 15 mcg Budesonide (Pulmicort Respules) 0.5 mg IH [id number] [facility] Last Admin: 06/01/16 08:14 Dose: 0.5 mg Enoxaparin Sodium (Lovenox) 40 mg SC DAILY MAXIMO PRN Reason: Protocol Last Admin: 06/01/16 09:46 Dose: 40 mg Linezolid (Zyvox 600mg/300ml D5w) 300 mls @ 200 mls/hr IVPB Q12 MAXIMO PRN Reason: Protocol Stop: 06/06/16 10:01 Last Admin: 06/01/16 09:51 Dose: 200 mls/hr Aztreonam (Azactam 1 Gm) 100 mls @ 100 mls/hr IVPB Q8 MAXIMO PRN Reason: Protocol Stop: 06/06/16 08:31 Last Admin: 06/01/16 05:27 Dose: 100 mls/hr - Labs Labs: 06/01/16 08:30 06/01/16 08:30 PT 10.9 Seconds (9.9-11.8) 06/01/16 11:40 INR 1.01 (0.93-1.08) 06/01/16 11:40 Attending/Attestation - Attestation I have personally seen and examined this patient.: Yes I have fully participated in the care of the patient.: Yes I have reviewed all pertinent clinical information, including history, physical exam and plan: Yes Notes (Text): 06/01/16 12:51 I have seen and examined patient with GI fellow. No acute events overnight. She is seen sitting at bedside, appears quite comfortable. Her breathing has improved and she denies abdominal pain, nausea, vomiting, diarrhea, jaundice, pruritis. Tolerating PO diet without difficulty. Asthma, dyspnea Pneumonia Incidentally found R hepatic lobe liver lesion with arterial enhancement and venous washout on triple phase CT - Diet as tolerated - Continue with antibiotic therapy as per ID - Obtain abdominal duplex to evaluate for thrombus - Awaiting results of hepatitis and autoimmune panel, AFP - LFTs normal, continue to monitor - Patient without obvious risk factors for development of malignant liver lesion aside from remote use of OCP for approximately [address] certainly concerning and will require additional outpatient follow up and potential biopsy based on clinical lab results. Patient will also require outpatient colonoscopy given family history of colon cancer. From GI perspective ok to discharge home, patient has follow up with Dr. Lim scheduled for next week.
[2016-06-01] MEDS: Arformoterol 15 mcg/2 ml Inh Sol IH SCH (08:13)
[2016-06-01] MEDS: Budesonide 0.5 mg/2 ml Inhal Susp UD IH SCH (08:14)
[2016-06-01 08:38] VITALS: BP 106/64; PULSE 77; TEMP 97.6; O2SAT 98
[2016-06-01 09:01] LABS: HEMATOCRIT 33.5 % (36.0-48.0); MEAN CELL VOLUME 91.8 fL (80.0-105.0); MEAN CORPUSCULAR HGB CONC 33.7 g/dl (31.0-37.0); MEAN PLATELET VOLUME 10.9 fl (7.0-11.0); RED CELL DISTRIBUTION WIDTH 12.9 % (11.5-14.5); WHITE BLOOD COUNT 5.9 10^3/ul (4.5-11.0)
[2016-06-01 09:16] LABS: ALKALINE PHOSPHATASE 65 U/L (38-133); ALT/SGPT 22 U/L (7-56); AST/SGOT 24 U/L (15-39); BILIRUBIN,TOTAL 0.2 mg/dL (0.2-1.3); BLOOD UREA NITROGEN 6 mg/dL (7-21); CALCIUM 8.3 mg/dL (8.4-10.5); CARBON DIOXIDE 26 mmol/L (21-33); CHLORIDE 104 mmol/L (95-110); GFR AFRICAN-AMERICAN > 60; GLUCOSE,RANDOM 95 mg/dL (70-110); POTASSIUM 3.5 mmol/L (3.6-5.0); SODIUM 139 mmol/L (132-148); TOTAL PROTEIN 6.6 g/dL (5.8-8.3)
[2016-06-01] MEDS: Enoxaparin 40 mg Syringe SC SCH (09:46)
--- NOTE | 2016-06-01 09:49 | CT ---
CT abdomen and pelvis without/with IV contrast Indication: Evaluate liver lesion Technique: Contiguous axial images of the abdomen and pelvis without & with IV contrast utilizing liver protocol. Coronal and Sagittal reformats generated and reviewed. This CT exam was performed using 1 or more of the falling dose reduction techniques: Automated exposure control, adjustment of the MAA and/or kV according to patient size, and/or use of iterative reconstruction technique. Contrast: 150 mL Omnipaque 350 administered. Oral contrast. Radiation dose: Total exam DLP = 845.44 MGy-cm. Comparison: None available. Findings: Left lower lobe consolidation compatible with pneumonia. Right basilar atelectasis. Trace bilateral pleural effusions. No visible pneumothorax. 2.6 cm arterially enhancing right hepatic lobe lesion demonstrates washout on portal venous phase. The spleen, kidneys, pancreas, adrenal glands, and gallbladder appear unremarkable. The stomach is nondistended. Small hiatal hernia/ distal esophageal wall thickening. 4 mm left hepatic lobe too small to characterize left hepatic lobe hypodensity. The included upper abdominal bowel loops appear within normal limits of caliber without evidence of intestinal obstruction. The appendix appears within normal limits of caliber. No secondary signs of acute appendicitis. There is no definite free air. Tiny fat containing umbilical hernia. No acute osseous abnormality is detected. Impression: 2.6 cm arterially enhancing right hepatic lobe lesion with washout on portal venous phase. Considerations include adenoma, malignant neoplasm such as hepatocellular carcinoma, or less likely aneurysm. Dedicated liver MRI may be considered for further characterization. Too small to characterize left hepatic lobe hypodensity. Left lower lobe consolidation compatible with pneumonia. Right basilar atelectasis. Trace bilateral pleural effusions.
[2016-06-01] MEDS: Linezolid 600 mg in D5W 300 ml 300 ML IVPB SCH (09:51)
--- NOTE | 2016-06-01 09:51 | PN ---
DATE: 06/01/2016 PULMONARY PROGRESS NOTE ROOM 364, bed 2 The patient is feeling well and is anxious to be discharged. I have spoken at length with Dr. Arvin Rahman regarding her status. 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 She has multiple problems that need to be evaluated further. PHYSICAL EXAMINATION: GENERAL: She is comfortable, no acute respiratory distress. VITAL SIGNS: Stable. Oxygen sat 100% on room air. HEENT: Normal. NECK: Supple. No JVD, no lymphadenopathy or bruit. EYES: PERRLA. EOMs full. RESPIRATORY: Lungs clear to percussion and auscultation. No prolonged expiration. ABDOMEN: Soft. Bowel sounds normoactive without mass, guarding, rebound or organomegaly. EXTREMITIES: Reveal no clubbing, cyanosis or edema. There is no Homans sign. NEUROLOGIC: Within normal limits. SKIN: Without rash or excoriation. Lymphadenopathy is not present. The followup chest x-ray done on 05/31 shows that the pulmonary infiltrates have markedly improved. D -dimer remained elevated. CLINICAL IMPRESSION: 1. Asthma, resolved. 2. Pneumonitis, resolving as well. 3. Possibility of underlying neoplasm still needs to be excluded, but doubt that this will be necess franky if there is no identification of pulmonary emboli. 4. Chest pain -- musculoskeletal, now resolved as well. 5. Possibility of pulmonary embolism still exists, but there are many factors going against this patsy gnosis such as lack of pleuritic pain, patient looking well, infiltrates that have resolved. Factors still that need to be explained are an abnormal CT angio of the chest, which was read as positive, w hich is quite likely only equivocal and not consistent. The factor of the elevated D-dimer also is c oncerning. FURTHER PLAN: Complete antibiotic coverage. Analgesics are discontinued. Continue inhaled bronchod ilators and corticosteroids. Would continue anticoagulation until the patient is seen by her PMD. E liquis seems like an appropriate medication for short term use. Last thing, follow up with the barrie harmon's pulmonary physician in [facility]. I will be happy to discuss all of her information with kavin perales. I would suggest a followup helical CT of the chest in 6 weeks' time and make a final decision whe ther or not this was in fact a false positive finding and that perhaps the anticoagulation can be dis continued. I discussed all of these problems with both the patient, her oldest daughter and Dr. Arvin Rahman. Once the patient is discharged, I will discuss further problems with the patient's pulmonary physicia n and will be happy to speak to the patient at any time as required. Thank you for the opportunity to see this [place] patient. We will follow as an outpatient as necessa ry. Wily Tom MD cc: [id number] TT: 06/01/2016 09:50:20 Confirmation # [id number] Dictation # [id number] en
[2016-06-01] MEDS ORDERED: Potassium Chloride 20 mEq ER Tab PO ONE (09:55)
--- NOTE | 2016-06-01 10:27 | DS ---
SUBJECTIVE: She just came back from a CT scan of her liver this morning. She is comfortable in bed. She is feeling much better, breathing much better. No shortness of breath, no chest pain, no abdom inal pain. She feels like she wants to go home. PHYSICAL EXAMINATION: VITAL SIGNS: She has a 97.6 temp, 77 pulse, 106/64 blood pressure, 20 respiratory rate, 98% O2 sat o n room air. HEENT: Head is atraumatic, normocephalic. HEART: Regular rate. LUNGS: Decreased breath sounds but clear to auscultation. No rales, rhonchi or wheezes. ABDOMEN: Soft, nontender. EXTREMITIES: No edema. MEDICATIONS: She is currently on Azactam, Brovana, Lovenox, Pulmicort, Tylenol and Zyvox. LABORATORY DATA: She has an 8.4 white count that was 2 days ago, and a 139 sodium that was also 2 da ys ago. I know I have been ordering blood tests on her. I do not see any blood tests. I will order them STAT. I am not sure why they are not being done. I am also trying to discharge her today. Star bender was here for pneumonia, but there has been some question of cancer and emboli, which clinically she does not appear to be having. We will wait and see what the CT scan of the liver shows and I will t alk to GI and I will talk to pulmonary about possibly discharging her from the hospital today with ou tpatient followup since clinically she is improved. She is on 2 antibiotics, aztreonam, and Zyvox. We will see if we can change her to tablets and hopefully she can be discharged. She had pneumonia, possible lung cancer, possible emboli, possible liver lesions, I am not sure what they are, could be hemangiomas. I will talk to her later on. Arvin Rahman DO cc: [id number] TT: 06/01/2016 10:26:46 margaret
[2016-06-01 12:12] LABS: INR 1.01 (0.93-1.08)
[2016-06-01 12:53] LABS: TRANSFERRIN 180.48 mg/dL (206-381)
[2016-06-01 12:54] LABS: IMMUNOGLOBULIN G 782.4 mg/dL (700.0-1600.0)
[2016-06-01 12:55] LABS: IMMUNOGLOBULIN M 76.2 mg/dL (40.0-230.0)
[2016-06-01 12:56] LABS: IMMUNOGLOBULIN A 245.7 mg/dL (70.0-400.0)
--- NOTE | 2016-06-01 16:58 | US ---
PROCEDURE: Duplex Doppler examination of the portal vein. HISTORY: evaluate portal system for thrombosis COMPARISON: None TECHNIQUE: Duplex Doppler examination of the portal vein, hepatic artery and hepatic was were performed. FINDINGS: There is normal spectral waveform and direction of flow in the portal vein. The hepatic artery and hepatic veins are patent. IMPRESSION: No evidence of portal venous thrombosis.
--- NOTE | 2016-06-01 17:30 | CP.PCM.PN ---
Subjective - Date & Time of Evaluation Date of Evaluation: 06/01/16 Time of Evaluation: 09:45 - Subjective Subjective: Comfortable in bed, not in distress, no fevers overnight. Objective - Vital Signs/Intake and Output Vital Signs (last 24 hours): Temp Pulse Resp BP Pulse Ox 97.6 F 77 20 106/64 98 06/01/16 04:00 06/01/16 04:00 06/01/16 04:00 06/01/16 04:00 06/01/16 04:00 - Labs Labs: 06/01/16 08:30 06/01/16 08:30 PT 10.9 Seconds (9.9-11.8) 06/01/16 11:40 INR 1.01 (0.93-1.08) 06/01/16 11:40 - Constitutional Appears: Non-toxic, No Acute Distress - Head Exam Head Exam: NORMAL INSPECTION - ENT Exam ENT Exam: Mucous Membranes Moist - Neck Exam Neck Exam: absent: Lymphadenopathy, Meningismus - Respiratory Exam Respiratory Exam: Decreased Breath Sounds - Cardiovascular Exam Cardiovascular Exam: +S1, +S2 - GI/Abdominal Exam GI & Abdominal Exam: Soft. absent: Tenderness Assessment and Plan - Assessment and Plan (Free Text) Plan: Assessment Probable community-acquired pneumonia, left lower lobe, clinically improving asthma S/P caesarian section and tubal ligation Plan continue Zyvox and Aztreonam day 3; blood cx are negative; reviewed recommendations of Pulmonary - patient should have outpatient follow up with Operations Scheduler to make sure that the infiltrate resolves, or get further work up if it persists; she may be switched to PO antibiotics such as Levaquin when ready for discharge to complete a 5-7 day course
[2016-06-04 22:46] LABS: LKM-1 Ab (IgG) <=20.0 U (<=20.0)
[2016-06-05 14:24] LABS: SMOOTH MUSCLE AB TITER 1:40 Titer (< 1:20)
== END 2016-06-01 16:05 | disposition home or self-care (01) | DRG 193 ==
LOC: ED 19:59 → ERH 05-30 02:00 → 3RNO 05-30 04:32 → OBSVTOIN 05-30 15:16
PROVIDERS: ADMIT Family Medicine; ATTEND Family Medicine
PROC: 3E0F7GC Introduction of Other Therapeutic Substance into Respiratory Tract, Via Natural or Artificial Opening (ICD-10-PCS; principal; 2016-05-30)
DX: J18.9 Pneumonia, unspecified organism (principal); I26.99 Other pulmonary embolism without acute cor pulmonale; C34.90 Malignant neoplasm of unspecified part of unspecified bronchus or lung; K76.9 Liver disease, unspecified; J45.909 Unspecified asthma, uncomplicated; Z80.0 Family history of malignant neoplasm of digestive organs; Z80.7 Family history of other malignant neoplasms of lymphoid, hematopoietic and related tissues